=== PATIENT | female | born 1995 | race Caucasian/White ===

== ENCOUNTER 2022-03-13 20:51 | Emergency (ER) | payer OTHER | END 2022-03-13 23:19 | disposition home or self-care (01) | LOC: ER1 20:51 | DX: J06.9 Acute upper respiratory infection, unspecified (principal); Z20.822 Contact with and (suspected) exposure to COVID-19; F17.200 Nicotine dependence, unspecified, uncomplicated | CPT/HCPCS: 87081; 87880; 99283; U0002 ==

== ENCOUNTER 2022-03-24 14:11 | Emergency (ER) | payer OTHER | END 2022-03-24 15:55 | disposition home or self-care (01) | LOC: ER1 14:11 | DX: S93.401A Sprain of unspecified ligament of right ankle, initial encounter (principal); F17.200 Nicotine dependence, unspecified, uncomplicated; X50.9XXA Other and unspecified overexertion or strenuous movements or postures, initial encounter; Y93.39 Activity, other involving climbing, rappelling and jumping off; Y92.009 Unspecified place in unspecified non-institutional (private) residence as the place of occurrence of the external cause | CPT/HCPCS: 73610; 73630; 99283 ==